=== PATIENT | female | born 1970 | race Caucasian/White ===

== ENCOUNTER 2019-06-28 13:02 | Emergency (ER) | payer SELFPAY ==
[~2019-06-28] VITALS: Ht 160 cm; Wt 80.0 kg
[2019-06-28] MEDS ORDERED: KETOROLAC 30MG/ML VIAL IM ONE (14:45)
[2019-06-28 14:53] VITALS: BP 147/94
== END 2019-06-28 16:58 | disposition home or self-care (01) ==
LOC: ER 13:02
DX: M25.572 Pain in left ankle and joints of left foot (principal)
CPT/HCPCS: 73590; 73610; 96372; 99283; J1885